=== PATIENT | female | born 1965 | race Native Hawaiian/Other Pacific Islander ===

== ENCOUNTER → 2024-09-02 13:21 | Outpatient (REF) | payer OTHER, SELFPAY | LOC: HWRAD 13:21 | PROVIDERS: ATTENDING PHYSICIAN Obstetrics & Gynecology | DX: N95.0 Postmenopausal bleeding (principal) | CPT/HCPCS: 76830; 76856 ==

== ENCOUNTER 2025-01-16 20:26 | Emergency (ER) | payer OTHER, SELFPAY ==
[2025-01-16 20:33] VITALS: BP 206/118
[2025-01-16 21:11] LABS: Hematocrit 39.3 % (37.0-47.0); Hemoglobin 13.5 g/dL (12.0-16.0); Mean Corp Hgb Conc. 34.4 g/dL (33.0-37.0); Mean Corpuscular Volume 82.9 fL (81.0-99.0); Nucleated Red Blood Cells % 0 %; Platelet Count 286 10^3/uL (130-400); Red Cell Dist. Width 13.4 % (11.5-14.5)
[2025-01-16 21:26] VITALS: BP 178/82
[2025-01-16 21:34] LABS: Troponin I < 0.012 ng/ml
[2025-01-16 21:38] LABS: ALT (SGPT) 19 U/L (0-35); AST (SGOT) 29 U/L (14-36); Albumin 4.8 g/dl (3.5-5.0); Alkaline Phosphatase 53 U/L (38-126); Blood Urea Nitrogen 19 mg/dl (7-17); Calcium 9.6 mg/dl (8.4-10.2); Carbon Dioxide 25 mmol/L (22-30); Chloride 107 mmol/L (98-107); Glucose 120 mg/dl (70-99); Potassium 4.6 mmol/L (3.5-5.1); Sodium 139 mmol/L (135-145); Total Protein 7.6 g/dl (6.3-8.2); eGFR > 60.00
--- NOTE | 2025-01-16 21:46 | ED.GENMED ---
History of Present Illness
General
Chief Complaint: Blood Pressure Problem
Source: patient
Exam Limitations: none
Time Seen by Provider: 01/16/25 21:33
Nursing documentation reviewed up to this point in time: agreed with
History of Present Illness
History of Present Illness:
59-year-old female with past medical history of migraines presents to the ER with her for evaluation of hypertension. Patient reports that she checked her blood pressure using her 's blood pressure cuff today�she says she did it out
of curiosity and for no other reason. She says it was quite elevated over 170 and it seemed to be staying high when it was rechecked throughout the day which prompted trip to the emergency room. She says she did have a headache today that resolved
after she took her normal migraine medication that she says that she typically has 2 or 3 migraines a week and that this is a longstanding chronic issue for which she takes regular magnesium supplement and as needed abortive medication. She does
not feel the headache was any different today than her typical. She denies any other symptoms such as chest pain, shortness of breath, change in vision or speech, focal weakness or numbness. She denies any known history of hypertension in the past
and does not take any medications for blood pressure now, has never taken medicine for blood pressure she says.
Review of Systems
Review of Systems
All Other Systems: ROS reviewed and negative except as documented in HPI and ROS
Constitutional: Denies fever
Respiratory: Denies trouble breathing
Cardiac: Denies chest pain
ABD/GI: Denies abdominal pain, nausea or vomiting
: Denies flank pain
Musculoskeletal: Denies neck pain or back pain
Neurological: Reports headache; Denies dizzy, weakness or numbness
Phy Exam
Physical Exam
Physical Exam:
General: Awake, alert; no acute distress
Head: Normocephalic, atraumatic
Eyes: Conjunctiva normal, EOMI, pupils equal round reactive to light bilaterally
Throat: Airway intact, handling secretions
Neck: Trachea midline
Lungs: Clear to auscultation bilaterally, no wheezing, rales, rhonchi
Heart: Regular rate and rhythm, no murmurs, gallops, or rubs
Abd: Soft, non distended, nontender
Neuro: Cranial nerves intact, speech fluid without dysarthria or aphasia, motor and sensory intact in all extremities
Extremities: No edema in extremities, equal pulses in all extremities
Scores
Heart Failure Risk
Heart Failure Risk Score: Not Applicable
Heart Score for Chest Pain Patients
STEMI patient?: Not applicable
Withdrawal Assessment of Alcohol
Withdrawal Assessment Completed?: Not applicable
Course
Orders/Labs/Results
Orders:
Orders
01/16/25 20:36
Electrocardiogram (*1) Urgent
Reason for Study: Hypertension, Benign
CT Head W/o Iv Contrast Urgent
Comment:
Reason For Exam: headache/HTN
01/16/25 20:37
EKG- Treatment ONCE
01/16/25 20:55
Complete Blood Count/With Diff Urgent
Comprehensive Metabolic Panel Urgent
TSH Reflex To Free T4 Urgent
Troponin I Urgent
01/16/25 21:45
HydrALAZINE [Apresoline] 5 mg IV NOW STA
01/16/25 21:46
Amlodipine [Norvasc] 5 mg PO ONCE ONE
Abnormal Lab Results
01/16/25
20:55
BUN 19 H mg/dl
(7-17)
Glucose 120 H mg/dl
(70-99)
01/16/25 20:55
01/16/25 20:55
Vital Signs
Initial and Last Documented VS:
Initial Vital Signs
Temp Pulse Resp BP Pulse Ox
36.7 C 61 20 206/118 98
01/16/25 20:33 01/16/25 20:33 01/16/25 20:33 01/16/25 20:33 01/16/25 20:33
Last Documented Vital Signs
Temp Pulse Resp BP Pulse Ox
36.7 C 56 10 178/82 99
01/16/25 20:33 01/16/25 21:30 01/16/25 21:30 01/16/25 21:26 01/16/25 21:30
MDM/Problems Addressed
Differential Diagnosis Includes:
Hypertension
MDM/Problems Addressed:
59-year-old female presents for evaluation of hypertension as described above. No known history of hypertension, does not take any medications for blood pressure. On arrival her blood pressure was 206/118�it has improved to 178/82 without
intervention by the time of my assessment. She had lab work sent in triage including a CBC and a CMP which showed no clinically significant abnormalities�notably acceptable renal function. EKG shows sinus rhythm, troponin undetectable. CT head is
pending given report of headache although it sounds like headache today was consistent with her typical migraines which are a longstanding chronic issue for her. Will plan to provide some antihypertensives here and will reassess.
Acute Exacerbation and/or Progression of Chronic Illness:
Acutely hypertensive
Acute Exacerbation and/or Progression of Chronic Illness: HTN
*Radiology
Radiology exam reviewed: radiology read reviewed
*Pulse Oximetry
SaO2: 99
Oxygen Mode of Delivery: Room air
Patient hypoxic: no (99%)
*EKG
Interpreted by ED Provider?: Yes
Heart Rate: 60
Rate: normal
Rhythm: sinus
[place]: normal axis
Interval: normal interval
QRS Pattern: normal QRS
Ischemia: no ischemia
*Critical Care Note
Total Time (30-74mins, 75-104mins- exclusive of procedures): Not Applicable
Data Reviewed
Source: patient and spouse
ED Attending Note
-
Portions of this chart may have been created with voice recognition software.� Occasional wrong word or��sound alike� substitutions may have occurred due to the inherent limitations of voice recognition software.
Discharge Plan
Departure
Patient with high blood pressure during this ER visit?: Yes
Discharge Problem:
Hypertension, Headache
Instructions: High Blood Pressure (DC), Headaches in adults
Prescriptions:
New
amlodipine 5 mg tablet
5 mg PO DAILY Qty: 30 0RF
Referrals:
Homer Joy MD [Active, Cardiology] - As needed
Marcio Navarro CRNP [Family Provider, General] - Follow up in 5-7 days
Activity Restrictions/Additional Instructions:
Thank you for visiting the Emergency Department at [facility].
1. Please schedule a follow up appointment as directed. Call first thing tomorrow morning to make an appointment.
2. If indicated, please take your medications as instructed and indicated on discharge paperwork.
3. If any of your symptoms do not improve, or persist, or become more severe within 6-12 hours, please return to the emergency department for further care.
4. Please return to the emergency department if you develop a headache, neck pain/stiffness, fever greater than 100.4F, chest pain, shortness of breath, persistent nausea, vomiting, slurred speech, difficulty walking, numbness/tingling, weakness,
signs of infection or any other symptoms that are worrisome to you.
Please call [phone] if you have any questions.
Interventions
Interventions:
*Risk Screen - Suicide Last Done: 01/16/25 21:25
*General Assessment Last Done: 01/16/25 20:33
*Neglect/Abuse Screening Last Done: 01/16/25 21:25
*ED- Fall Risk Assessment Last Done: 01/16/25 21:25
*ED COVID-19 Vaccine History Last Done: 01/16/25 21:25
ED- Cardiac Assessment Last Done: 01/16/25 21:25
ED- Neurological Assessment Last Done: 01/16/25 21:25
ED- Pulmonary Assessment Last Done: 01/16/25 21:25
Discharge Date and Time
Print Language: FRISIAN
[2025-01-16 22:00] VITALS: BP 161/96
[2025-01-16] MEDS: NORVASC 5 MG PO (22:01)
[2025-01-16 22:32] VITALS: BP 138/66
== END 2025-01-16 22:57 | disposition home or self-care (01) ==
LOC: EMR 20:26
PROVIDERS: Emergency Medicine; EMERGENCY PHYSICIAN Emergency Medicine; FAMILY PHYSICIAN Nurse Practitioner Gerontology
DX: I10 Essential (primary) hypertension (principal); R51.9 Headache, unspecified
CPT/HCPCS: 99285; 70450; 80053; 84443; 84484; 85025; 93005